=== PATIENT | female | born 1985 | race Caucasian/White ===

== ENCOUNTER 2018-07-07 20:20 | Inpatient (IN) ==
[2018-07-07] MEDS ORDERED: RINGER'S SOLUTION,LACTATED 1,000 ML IV ONE (20:35)
[2018-07-07] MEDS ORDERED: OXYTOCIN/DEXTROSE 5%-WATER 30 UNITS/500 ML BAG IV ONE (20:35)
[2018-07-07] MEDS ORDERED: ONDANSETRON HCL/PF 2 MG/ML VIAL IV PRN ×2 (20:35→21:33)
[2018-07-07] MEDS ORDERED: NALOXONE HCL 1 MG/1 ML SYRG IV PRN (21:33)
[2018-07-07] MEDS ORDERED: BUPIVACAINE HCL/0.9 % NACL/PF 250 ML EP PRN (21:33)
[2018-07-07] MEDS ORDERED: BUPIVACAINE HCL/PF 30 ML VIAL EP SCH (21:45)
--- NOTE | 2018-07-07 22:14 | ANES ---
Anesthesia Pre Procedure Eval Vitals/Labs: Last Vital Signs Temp 36.7 C 07/07/18 21:46 Pulse 114 H 07/07/18 21:46 Resp 20 07/07/18 21:46 BP 133/71 07/07/18 21:46 Pulse Ox 96 07/07/18 21:46 HOME MEDICATIONS Vits96/Iron Fum/Folic [ S] 1 tab PO DAILY 07/15/14 [Last Taken 07/06/18 07:00] Ferrous Sulfate 325 mg PO DAILY #0 tab 07/18/14 [Last Taken 07/06/18 07:00] Allergies/Adverse Reactions: Allergies Allergy/AdvReac Type Severity Reaction Status Date / Time Sulfa (Sulfonamide Allergy RASH Verified 07/07/18 20:43 Antibiotics) - Planned Procedure Planned Procedure: labor epidural Medication List Reviewed:: Yes Allergies Verified: Yes Medical History (Last Reviewed 07/05/18 @ 09:01 by Rosana Sweeney) Abnormal Pap smear of cervix Onset Date: Unknown Anemia Onset Date: 04/26/18 Cervical dysplasia Onset Date: ~2005 Hemorrhoids Onset Date: Unknown Lymphadenopathy Onset Date: ~1999 Surgical History (Last Reviewed 07/05/18 @ 09:01 by Rosana Sweeney) H/O LEEP Onset Date: ~2005 H/O cervical biopsy Onset Date: 06/07/06 H/O wisdom tooth extraction Onset Date: Unknown History of adenoidectomy Onset Date: ~1998 History of colposcopy Onset Date: Unknown Hx of myringotomy Onset Date: ~1998 Hx of tonsillectomy Onset Date: ~1998 Family History (Last Reviewed 07/05/18 @ 09:01 by Rosana Sweeney) Aunt Cancer Father Hyperlipemia Mother Hypertension Grandfather Emphysema of lung Cancer Grandfather Cancer Grandmother Diabetes - Cardiovascular Heart Sounds: S1 & S2, Regular - Anesthesia Assessment and Plan ASA Class: PS, II Anesthesia Type Plan: Epidural
--- NOTE | 2018-07-07 22:29 | ANES ---
Post Anesthesia Assessment - Vital Signs Vitals: Last Vital Signs Temp 36.2 C 07/07/18 22:27 Pulse 86 07/07/18 22:27 Resp 18 07/07/18 22:27 BP 123/71 07/07/18 22:27 Pulse Ox 97 07/07/18 22:27 Airway Patency: Normal - Mental Status Level Of Consciousness: Awake - N/V Assessment Nausea/Vomiting Presence: None Dehydration:: No
--- NOTE | 2018-07-07 22:29 | ANES ---
Anesthesia Procedure Note Procedure Note: ANESTHESIA PROCEDURE NOTE Date of Procedure: 07/07/2018. Time of procedure: 2214. Performed by: Tristen Montalvo CRNA Inventory Control Coordinator: None. Preprocedure diagnosis: Active labor. Post procedure diagnosis: Same. Procedure: Insertion of labor epidural. Indications: The patient is a 33 -year-old female in active labor requesting labor epidural for pain management. Findings: See below. Details of the procedure: The patient was placed in a sitting position. DuraPrep as well as Betadine swabs X3 was applied to the patient's back. Patient was then draped in a sterile fashion. Lidocaine 1% was infiltrated to the skin and subcutaneous tissues at the level of the L3-4 interspace. The epidural space was identified using a 18-gauge Tuohy needle with loss-of- resistance technique. Epidural catheter was inserted to a depth of 12 centimeters at skin. Negative test dose was elicited using 3 mL of 1.5% preservative-free lidocaine plus epinephrine 1 200,000. The epidural catheter was then taped and secured in place. EBL: Minimal. Fluids: N/A. Specimen: N/A. Post procedure condition: The patient tolerated the procedure well. No complications were noted. Thank you for this consultation. Tristen Montalvo CRNA
--- NOTE | 2018-07-07 23:30 | HP ---
Chief Complaint - Chief Complaint Date of Service: 07/07/18 Time of Service: 23:21 Chief Complaint: leaking fluid History of Present Illness: 33 yo at 37 3/7 wks presnts with complaint of leaking of fluid since around 1930 with mild contractions. This complicated by mild anemia and history of LEEP. RH positive Rubella immune GBS negative Medical History (Last Reviewed 07/07/18 @ 23:26 by Andres Hsu DO) Abnormal Pap smear of cervix Onset Date: Unknown Anemia Onset Date: 04/26/18 Cervical dysplasia Onset Date: ~2005 Hemorrhoids Onset Date: Unknown Lymphadenopathy Onset Date: ~1999 Surgical History: Surgical History (Last Reviewed 07/07/18 @ 23:26 by Andres Hsu DO) H/O LEEP Onset Date: ~2005 H/O cervical biopsy Onset Date: 06/07/06 H/O wisdom tooth extraction Onset Date: Unknown History of adenoidectomy Onset Date: ~1998 History of colposcopy Onset Date: Unknown Hx of myringotomy Onset Date: ~1998 Hx of tonsillectomy Onset Date: ~1998 Family History: Family History (Last Reviewed 07/07/18 @ 23:26 by Andres Hus DO) Aunt Cancer Father Hyperlipemia Mother Hypertension Grandfather Emphysema of lung Cancer Grandfather Cancer Grandmother Diabetes Social History: Preferred Language Indonesian Review Of Systems (GEN) - Review of Systems Generalized/Overall Review: Present: No Symptoms Reported EENTM: Present: No Symptoms Reported Respiratory: Present: No Symptoms Reported Cardiac: Present: No Symptoms Reported Abdominal: Present: No Symptoms Reported Genitourinary: Present: Other - LOF - clear, mild contractions Allergies/Adverse Reactions: Allergies Allergy/AdvReac Type Severity Reaction Status Date / Time Sulfa (Sulfonamide Allergy RASH Verified 07/07/18 20:43 Antibiotics) Home Medications: HOME MEDICATIONS Vits96/Iron Fum/Folic [ S] 1 tab PO DAILY 07/15/14 [Last Taken 07/06/18 07:00] Ferrous Sulfate 325 mg PO DAILY #0 tab 07/18/14 [Last Taken 07/06/18 07:00] Exam - Exam Vital Signs: Vital Signs - Last Taken Temp 36.2 C 07/07/18 22:27 Pulse 86 07/07/18 22:27 Resp 18 07/07/18 22:27 BP 123/71 07/07/18 22:27 Pulse Ox 97 07/07/18 22:27 Constitutional: Present: Alert, Oriented x3, Cooperative, No distress ENT Exam: Present: hearing grossly normal Breasts: Present: Exam deferred Respiratory: Present: lungs clear, no respiratory distress Cardiovascular/Chest: Present: regular rate, rhythm, no edema Abdomen: Present: soft, nontender, other - gravid /Rectal: Present: Other - 3/50/-2, Gross ROM - clear Extremity: Present: non-tender, no pedal edema, no calf tenderness Skin Exam: Present: normal color, warm/dry, no cyanosis Lymphatic: Present: no adenopathy Neurologic: Present: alert, normal mood/affect, oriented x 3 Appearance: Present: appropriate appearance Eye contact: Present: cooperative, good eye contact, normal speech Thoughts: Present: normal thought pattern Assessment/Plan - Assessment/Plan (1) SROM (spontaneous rupture of membranes) Assessment: Admit for routine management of labor. Epidural PRN. Minimize vaginal exams. Problem: Acute (2) First stage of labor established Problem: Acute
--- NOTE | 2018-07-07 23:33 | PN ---
Progess Note - Interim Date: 07/07/18 Time: 23:30 Narrative: 07/07/18 23:30 Patient comfortable with epidural Vital signs stable. FHT 120, reassuring CTx q 2-3 min Cvx 75/-2 Impression: IUP 37 3/7 wks with SROM at 1930, in labor Plan: Continue present plan.
[2018-07-08] MEDS ORDERED: BISACODYL 10 MG SUPP.RECT RC PRN (05:55)
[2018-07-08] MEDS ORDERED: oxyCODONE HCL/ACETAMINOPHEN 1 TAB TABLET PO PRN ×2 (05:55)
[2018-07-08] MEDS ORDERED: HYDROCORTISONE 30 APPL TUBE TP PRN (05:55)
[2018-07-08] MEDS ORDERED: BENZOCAINE/MENTHOL 81 SPRAY CAN TP PRN (05:55)
[2018-07-08] MEDS ORDERED: GLYCERIN/WITCH HAZEL LEAF 40 APPL BOX TP PRN (05:55)
[2018-07-08] MEDS ORDERED: OXYTOCIN/DEXTROSE 5%-WATER 30 UNITS/500 ML BAG IV ONE (05:55)
[2018-07-08] MEDS ORDERED: SENNOSIDES 8.6 MG TABLET PO PRN (05:55)
--- NOTE | 2018-07-08 06:00 | OR ---
Operative Report - Dictated Report Narrative: Spontaneous vaginal delivery of viable male at 0540 on 07/08/2018 with Apgars 8 and 9, weighing 3492 g in GINGER position with tight nuchal cord 1. Cord clamping delayed approximately 1 minute Placenta delivered complete, intact, with three vessel cord Estimated blood loss: less than 50 ml Anesthesia: epidural Lacerations: None Note: Small pop heard as right anterior shoulder delivered spontaneously History for MU Definition: * The number of deliveries resulting in a live the patient experienced prior to current hospitalization * The previous delivery of live twins or any live multiple gestation is considered one live event. *If primagravida or nulliparous is documented select zero for the number of previous live births. Live Events: 1
[2018-07-08] MEDS: PRENATAL VITS96/IRON FUM/FOLIC 1 TAB TABLET PO SCH (08:48)
[2018-07-08] MEDS: IBUPROFEN 800 MG TABLET PO PRN ×2 (08:48→18:59)
[2018-07-08] MEDS: FERROUS SULFATE 325 MG TABLET PO SCH (08:48)
[2018-07-08] MEDS: DOCUSATE SODIUM 100 MG CAPSULE PO SCH (08:48)
[2018-07-09] MEDS: DOCUSATE SODIUM 100 MG CAPSULE PO SCH ×3 (00:56→20:20)
[2018-07-09] MEDS: FERROUS SULFATE 325 MG TABLET PO SCH (09:03)
[2018-07-09] MEDS: PRENATAL VITS96/IRON FUM/FOLIC 1 TAB TABLET PO SCH (09:03)
--- NOTE | 2018-07-09 13:51 | PN ---
Subjective - Date and Time Seen Date: 07/09/18 Time: 13:51 Objective - Vitals Vitals: Last Vital Signs Temp 36.8 C 07/09/18 13:25 Pulse 70 07/09/18 13:25 Resp 20 07/09/18 13:25 BP 118/57 07/09/18 13:25 Pulse Ox 98 07/09/18 13:25 Patient denies complaints. Lochia wnl Abdomen - soft, nontender Uterus - firm, at umbilicus - 1 No calf tenderness Impression: day #1 - s/p spontaneous vaginal delivery. Plan: Continue routine care Cauti Physician Documentation - Urinary Catheter Management Urethral (Stephen) Date of Insertion: 07/08/18 Time of Insertion: 02:00 Assessment/Plan - Problems/Diagnosis (1) SROM (spontaneous rupture of membranes) Problem: Acute (2) First stage of labor established Problem: Acute
[2018-07-10 08:12] VITALS: BP 129/74
[2018-07-10] MEDS: DOCUSATE SODIUM 100 MG CAPSULE PO SCH (09:12)
[2018-07-10] MEDS: PRENATAL VITS96/IRON FUM/FOLIC 1 TAB TABLET PO SCH (09:12)
[2018-07-10] MEDS: FERROUS SULFATE 325 MG TABLET PO SCH (09:12)
--- NOTE | 2018-07-10 14:46 | PN ---
Subjective - Date and Time Seen Date: 07/10/18 Time: 14:45 Objective - Vitals Vitals: Last Vital Signs Temp 36.8 C 07/10/18 07:52 Pulse 85 07/10/18 07:52 Resp 16 07/10/18 07:52 BP 129/74 07/10/18 07:52 Pulse Ox 99 07/10/18 07:52 Patient denies complaints. Lochia wnl Abdomen - soft, nontender Uterus - firm, at umbilicus - 2 No calf tenderness Impression: day #2 - s/p spontaneous vaginal delivery. Plan: Routine discharge instructions Cauti Physician Documentation - Urinary Catheter Management Urethral (Stephen) Date of Insertion: 07/08/18 Time of Insertion: 02:00 Assessment/Plan - Problems/Diagnosis (1) SROM (spontaneous rupture of membranes) Problem: Acute (2) First stage of labor established Problem: Acute
== END 2018-07-10 14:15 | disposition home or self-care (01) | DRG 775 ==
LOC: OBCLINIC 20:20 → OB 20:33
PROVIDERS: ADMIT Obstetrics & Gynecology; ATTEND Obstetrics & Gynecology
CPT/HCPCS: 59025